=== PATIENT | female | born 2000 | race Hispanic/Latino ===

== ENCOUNTER 2018-02-15 14:37 | Emergency (ER) | payer OTHER ==
[2018-02-15 16:36] LABS: KETONE, URINE AUTO RFX TRACE mg/dL (NEGATIVE); LEUKOCYTE ESTERASE UR AUTO RFX NEGATIVE (NEGATIVE); MUCUS, URINE RFX LARGE (NEGATIVE); NITRITE, URINE AUTO RFX NEGATIVE (NEGATIVE); RBC, URINE AUTO RFX 5 /HPF (0-3); SPECIFIC GRAVITY UR AUTO RFX 1.018 (1.002-1.035); SQUAM EPITHELIAL CELL UR AURFX 7 /HPF (0-6); WBC, URINE AUTO RFX 2 /HPF (0-3)
[2018-02-15] MEDS: NORCO, ANEXSIA 5/325MG TABLET (HYDROcodone/ACETAMINOPHEN) PO (16:46)
== END 2018-02-15 16:47 | disposition home or self-care (01) ==
LOC: M ED 14:37
DX: N76.4 Abscess of vulva (principal)
CPT/HCPCS: 81001

== ENCOUNTER 2018-06-12 14:52 | Emergency (ER) | payer OTHER ==
[~2018-06-12] VITALS: Ht 152.4 cm; Wt 61.4 kg
[~2018-06-12 14:52] MED LIST: KEFL500C17 PO; NORCOTAB PO
[2018-06-12] MEDS ORDERED: NEXP1IMP SC (15:09)
[2018-06-12 16:20] LABS: URINE PREG TEST POSITIVE (NEGATIVE)
[2018-06-12] MEDS ORDERED: DICL10TA PO (17:14)
[2018-06-12] MEDS ORDERED: PRENTAB7 PO (17:14)
[2018-06-12 17:23] VITALS: BP 118/68
== END 2018-06-12 17:24 | disposition home or self-care (01) ==
LOC: M ED 14:52
DX: O99.89 Other specified diseases and conditions complicating pregnancy, childbirth and the puerperium (principal); R19.7 Diarrhea, unspecified

== ENCOUNTER 2018-09-25 11:36 | Outpatient (CLI) | payer OTHER ==
[~2018-09-25] VITALS: Ht 152.4 cm; Wt 60.1 kg
[~2018-09-25 11:36] MED LIST changes: +DICL10TA PO; +HYDR-3715 PO; +NEXP1IMP SC; -NORCOTAB PO; +PRENTAB7 PO
--- NOTE | 2018-09-25 18:00 | HPE ---
DATE OF ADMISSION: 09/25/2018 This lady is a 17-year-old 1, para 0, last menstrual period (LMP) 04/14/2018, estimated date of confinement (EDC) 02/01/2019 at 21 weeks and 4 days with a history of contractions of two weeks' duration, more intense this morning and no vaginal bleeding or discharge. Labs are O+, HIV negative, hepatitis negative, RPR negative, rubella immune. Varicella immune. Urine was negative. 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 On physical examination, she is in no acute distress. Symphysis fundus height is appropriate at 20 weeks on the monitor. There are no contractions. Minor uterine irritability. heart rate is normal at 140-160 beats per minute with no decelerations. Her urine was 1025, pH 6, +1 leukocyte esterase and the rest was negative. Her blood pressure is 107/58, respirations were 16, pulse 69, temperature is 98.5. Our diagnosis was that she was significantly dehydrated, which is causing uterine irritability. The patient was hydrated up very well and the uterine irritability stopped. The patient no longer felt any contractions or uterine irritability. The rest the examination was unremarkable. She is normocephalic, atraumatic. Neck: Full range of motions. Pupils equal and reactive to light. Her mucous membranes were dry. Her lips were cracked. Her distal pulses were symmetric. No evidence of deep vein thrombosis (DVT), pulmonary embolism (PE), or superficial phlebitis. Chest is clear bilaterally with no wheezes or rhonchi. No costovertebral angle (CVA) tenderness. Appropriate symphysis fundus height and four quadrant bowel sounds were noted. She has no rashes, lesions or pruritus. She does have a tattoo. She has no arthralgia, myalgia. No complaint joint pain. No complaint cough, wheeze, shortness of breath or dyspnea on exertion. No frequency. No bruising. No bleeding. Neuro complete. No incontinency, urgency or frequency. No nausea, vomiting, diarrhea or constipation. No diabetic issues. As mentioned, she is a single duty soldier. She has no significant gyne history. She is under age for Pap smear. No history of sexually transmitted diseases (STDs). Past medical/surgical is unremarkable. FAMILY HISTORY: Family history is noncontributory. She does not smoke, drink, abuse drugs. She is not and there is no domestic violence. In summary, we have a 21 and four with dehydration, re-hydrated and seemed to be better. Precautions were given. Quarters for 24 hours were given. She was educated about the drinking and she has an appointment with Kai LIMA, 10/01/2018 and she was encouraged to keep that appointment. She expressed understanding of what to do.
== END 2018-09-25 15:40 | disposition home or self-care (01) ==
LOC: M LDO 11:36
PROVIDERS: ATTEND Obstetrics & Gynecology
DX: O26.892 Other specified pregnancy related conditions, second trimester (principal); Z3A.21 21 weeks gestation of pregnancy; E86.0 Dehydration; O99.282 Endocrine, nutritional and metabolic diseases complicating pregnancy, second trimester
CPT/HCPCS: G0378; G0463

== ENCOUNTER 2018-12-25 17:54 | Outpatient (CLI) | payer OTHER ==
[~2018-12-25] VITALS: Ht 152.4 cm; Wt 68.4 kg
[2018-12-25 18:24] VITALS: BP 114/57
--- NOTE | 2018-12-25 18:45 | IPNPDOC ---
Text Note Date of Service The patient was seen on 12/25/18. NOTE 18 yo at ~34 weeks gestation presents to L&D with the complaint of decreased movement. She reports feeling movement but just not as much as usual. She denies any vaginal bleeding or leakage of fluid or contraction pain. is uncomplicated. Vitals - VSS, afebrile, normotensive, non tachycardic General - AAOX3, sitting laying in bed, NAD Abdomen - Gravid uterus, no fundal tenderness. Extremities - No edema FHR tracing - NST reactive with moderate variability, +accels, no decels. TAUS (anatomy not assessed): Viable SIUP in cephalic presentation. KEITH 9.5cm. +gross movement. NST reactive and KEITH appropriate. Patient felt movement while in triage and was reassured. Discharged home with return precautions. DO LANA Shipman CHRISTOPHER J. DO Dec 25, 2018 18:45
== END 2018-12-25 18:56 | disposition home or self-care (01) ==
LOC: M LDO 17:54
PROVIDERS: ATTEND Obstetrics & Gynecology
DX: O36.8130 Decreased fetal movements, third trimester, not applicable or unspecified (principal); Z3A.34 34 weeks gestation of pregnancy
CPT/HCPCS: 59025; G0378; G0463